=== PATIENT | female | born 1945 | race Caucasian/White ===

== ENCOUNTER 2017-05-01 16:32 | Inpatient (IN) | payer MEDICARE, OTHER ==
[~2017-05-01] VITALS: Ht 154.9 cm; Wt 52.6 kg
[2017-05-01 16:33] VITALS: BP 159/71; PULSE 109; RESP 20; TEMP 98.5; O2SAT 96
--- NOTE | 2017-05-01 18:09 | RADRPT ---
EXAM DATE/TIME: 05/01/2017 17:30 [facility] COMPARISON: No previous studies available for comparison. INDICATIONS : Short of breath. MEDICAL HISTORY : Carcinoma, gastric. SURGICAL HISTORY : Port placement. Back surgery. ENCOUNTER: Initial ACUITY: 1 day PAIN SCORE: 5/10 LOCATION: Bilateral chest FINDINGS: [id number] in good position. Posterior spinal fusion evident. Elevation of the right hemidiaphra gm. Lungs are clear. The heart and pulmonary vascularity are normal. CONCLUSION: Elevation the right hemidiaphragm otherwise negative. Ariel Rivera MD FACR on May 01, 2017 at 18:07 Board Certified Radiologist. This report was verified electronically.
--- NOTE | 2017-05-01 18:09 | RADRPT ---
EXAM DATE/TIME: 05/01/2017 17:30 [facility] COMPARISON: No previous studies available for comparison. INDICATIONS : Short of breath. MEDICAL HISTORY : Carcinoma, gastric. SURGICAL HISTORY : Port placement. Back surgery. ENCOUNTER: Initial ACUITY: 1 day PAIN SCORE: 5/10 LOCATION: Bilateral chest FINDINGS: [id number] in good position. Posterior spinal fusion evident. Elevation of the right hemidiaphra gm. Lungs are clear. The heart and pulmonary vascularity are normal. CONCLUSION: Elevation the right hemidiaphragm otherwise negative. Ariel Rivera MD FACR on May 01, 2017 at 18:07 Board Certified Radiologist. This report was verified electronically.
--- NOTE | 2017-05-01 18:09 | RADRPT ---
EXAM DATE/TIME: 05/01/2017 17:30 [facility] COMPARISON: No previous studies available for comparison. INDICATIONS : Short of breath. MEDICAL HISTORY : Carcinoma, gastric. SURGICAL HISTORY : Port placement. Back surgery. ENCOUNTER: Initial ACUITY: 1 day PAIN SCORE: 5/10 LOCATION: Bilateral chest FINDINGS: [id number] in good position. Posterior spinal fusion evident. Elevation of the right hemidiaphra gm. Lungs are clear. The heart and pulmonary vascularity are normal. CONCLUSION: Elevation the right hemidiaphragm otherwise negative. Ariel Rivera MD FACR on May 01, 2017 at 18:07 Board Certified Radiologist. This report was verified electronically.
[2017-05-01 18:16] LABS: BACTERIA, URINE OCC /hpf; BILIRUBIN, URINE NEG (NEG); BLOOD, URINE NEG (NEG); GLUCOSE,URINE NEG (NEG); KETONE, URINE NEG (NEG); NITRITE,URINE NEG (NEG); SQUAMOUS EPITHELIAL CELL URINE <1 /hpf (0-5); URINE COLOR YELLOW (YELLW/STRAW); URINE LEUKOCYTE ESTERASE NEG (NEG)
--- NOTE | 2017-05-01 18:16 | RADRPT ---
EXAM DATE/TIME: 05/01/2017 17:41 [facility] COMPARISON: No previous studies available for comparison. INDICATIONS : Abdomen pain with swelling for two days. ORAL CONTRAST: No oral contrast ingested. RADIATION DOSE: 10.76 CTDIvol (mGy) MEDICAL HISTORY : Carcinoma, gastric. Carcinoma, hepatocellular. SURGICAL HISTORY : None. ENCOUNTER: Initial ACUITY: 2 days PAIN SCALE: 4/10 LOCATION: Bilateral lower quadrant TECHNIQUE: Volumetric scanning of the abdomen and pelvis was performed. Using automated exposure control and ad justment of the mA and/or kV according to patient size, radiation dose was kept as low as reasonably achievable to obtain optimal diagnostic quality images. DICOM format image data is available electro nically for review and comparison. FINDINGS: This study is degraded by motion artifact. LOWER LUNGS: There is a small right pleural effusion. LIVER: The right lobe of the liver is enlarged and diffusely inhomogeneous with ill-defined masslike areas n oted which are poorly defined. There is streak and motion artifact limiting sensitivity. Left lobe is more normal in size demonstrates apparent mild biliary obstruction. SPLEEN: Normal size without lesion. PANCREAS: Not well visualized or evaluated. KIDNEYS: Status post apparent left nephrectomy with surgical clips and kana in this region. The right kidne y is located in the central pelvis but no focal abnormality or hydronephrosis. ADRENAL GLANDS: Not well visualized. No evidence of a focal mass. VASCULAR: There is no aortic aneurysm. BOWEL/MESENTERY: No oral contrast was given limiting the sensitivity. There is a large left lateral hernia containing multiple loops of bowel. There is mesh in place along the lateral wall of the hernia. There is a nons pecific bowel gas pattern with multiple loops of nondilated air-containing small bowel. There are mul tiple diverticuli in the colon. There is no evidence of free air. Stomach is poorly defined. ABDOMINAL WALL: Within normal limits. RETROPERITONEUM: There is no lymphadenopathy. BLADDER: No wall thickening or mass. REPRODUCTIVE: Within normal limits. INGUINAL: There is no lymphadenopathy or hernia. MUSCULOSKELETAL: There is osteopenia, degenerative change and scoliosis. Postoperative changes are noted in the lumbar spine and lower thoracic spine status post fusion. There is evidence of anasarca with increased dens ity noted in the subcutaneous fat. CONCLUSION: 1. Limited suboptimal study with no intravenous or oral contrast. There is motion and streak artifact as well. This limits the sensitivity of the exam. 2. The right lobe of liver is markedly enlarged with ill-defined masslike areas of concern for metast atic disease or tumor. 3. Large left lateral hernia containing multiple loops of bowel. There is mesh over the lateral abdo jose wall. 4. Nonspecific bowel gas pattern which could represent an ileus or gastroenteritis. Obstruction is le ss likely. 5. Status post left nephrectomy. The right kidney is located in the central pelvis. 6. Right pleural effusion. 7. Anasarca. Ganga Morejon MD on May 01, 2017 at 18:08 Board Certified Radiologist. This report was verified electronically.
[2017-05-01 18:17] LABS: ALBUMIN 1.6 GM/DL (3.4-5.0); AST (GOT) 90 U/L (15-37); BICARBONATE 26.3 MEQ/L (21.0-32.0); BLOOD UREA NITROGEN 13 MG/DL (7-18); CALCIUM 7.7 MG/DL (8.5-10.1); CHLORIDE 100 MEQ/L (98-107); CREATININE 0.42 MG/DL (0.50-1.00); GLOMERULAR FILTRATION RATE 150 ML/MIN (>89); GLUCOSE,RANDOM 105 MG/DL (74-106); SODIUM (NA) 134 MEQ/L (136-145)
[2017-05-01 18:20] LABS: ALKALINE PHOSPHATASE 295 U/L (45-117); ALT (GPT) 23 U/L (10-53); TOTAL BILIRUBIN ADULT 0.5 MG/DL (0.2-1.0); TOTAL PROTEIN 4.9 GM/DL (6.4-8.2)
[2017-05-01] MEDS ORDERED: LORA-392 PO (18:27)
[2017-05-01] MEDS ORDERED: WELLTAB39 PO (18:27)
--- NOTE | 2017-05-01 18:32 | PD ---
HPI Chief Complaint: Edema Time Seen by Provider: 16:50 Travel History International Travel<30 days: No Contact w/Intl Traveler<30days: No Traveled to known affect area: No History of Present Illness HPI This 71 year-old woman with a history of metastatic gastric carcinoma who is brought in by her [id number] for lower extremity swelling. Patient has a complicated long history and just is moving to the area from [facility]. She reportedly had a major trauma a year or 2 ago where she was bedridden. She had been refusing treatment. Up and reportedly some time in the past year or so had major back surgeries all surgery on her left leg. There are this time she's also diagnosis of metastatic gastric cancer with multiple metastases to the liver. They have records with her that shows was known at least as far back in July where the imaging describes progressive disease. Patient has a port in place but it's unclear she's ever had chemotherapy. So like she may have had 4 treatments or so. Patient was being cared for by her brother who in January. Patient is unable to give much meaningful history. They report that she's also had her left kidney removed sometime in the remote past. Imaging did have with her shows that there are right kidney had hydronephrosis from obstruction possibly related to malignancy. They were reestablishing here and have an appointment with a new doctor at [facility]. They brought her into the emergency department today because of worsening lower extremity edema over the past several days. History Past Medical History Narrative Medical History of major trauma 2 years or so ago, reportedly bedridden, spinal surgery within the past year or so, and left lower extremity surgeries in the past 6 months or so Metastatic gastric carcinoma with multiple metastasis to the liver, unclear she' s ever had treatment for this History of left nephrectomy in the remote past Social History Alcohol Use: No Tobacco Use: No Allergies-Medications (Allergen,Severity, Reaction): Coded Allergies: No Known Allergies (Unverified , 05/01/17) Reported Meds & Prescriptions Reported Meds & Active Scripts Active Reported Ativan (Lorazepam) 0.5 Mg Tab 0.5 Mg PO DAILY PRN Wellbutrin Xl 24 HR (Bupropion HCl) 300 Mg Tab 300 Mg PO DAILY Review of Systems Except as stated in HPI: all other systems reviewed are Neg Physical Exam Narrative GENERAL: Chronically ill-appearing 71 year-old woman, no acute distress. SKIN: Focused skin assessment warm/dry. HEAD: Atraumatic. Normocephalic. EYES: Pupils equal and round. No scleral icterus. No injection or drainage. ENT: No nasal bleeding or discharge. Mucous membranes pink and moist. Temporal wasting. NECK: Trachea midline. No JVD. CARDIOVASCULAR: Regular rate and rhythm. No murmur appreciated. RESPIRATORY: No accessory muscle use. Clear to auscultation. Breath sounds equal bilaterally. GASTROINTESTINAL: Abdomen soft, non-tender, nondistended. Hepatic and splenic margins not palpable. MUSCULOSKELETAL: No obvious deformities. Significant pitting dependent edema in the lower extremities and in the buttock. Also some edema in the hands. NEUROLOGICAL: Awake and alert. Confused. No obvious cranial nerve deficits. Motor grossly within normal limits. Normal speech. Data Data Last Documented VS Vital Signs Date Time Temp Pulse Resp B/P (MAP) Pulse Ox O2 Delivery O2 Flow Rate FiO2 05/01/17 16:57 93 16 96 Room Air 05/01/17 16:33 98.5 159/71 (100) Orders Orders Complete Blood Count With Diff (05/01/17 17:01) Comprehensive Metabolic Panel (05/01/17 17:01) Iv Access Insert/Monitor (05/01/17 17:01) Ct Abd/Pel W/O Iv Contrast (05/01/17 ) Chest, Single Ap (05/01/17 ) Urinalysis - C+S If Indicated (05/01/17 17:01) Cath For Specimen (05/01/17 17:17) Labs Laboratory Tests Test 05/01/17 14:50 05/01/17 17:30 05/01/17 18:20 Urine Color YELLOW Urine Turbidity CLEAR Urine pH 6.0 Urine Specific [place] 1.021 Urine Protein TRACE mg/dL Urine Glucose (UA) NEG mg/dL Urine Ketones NEG mg/dL Urine Occult Blood NEG Urine Nitrite NEG Urine Bilirubin NEG Urine Urobilinogen 4.0 MG/DL Urine Leukocyte Esterase NEG Urine RBC LESS THAN 1 /hpf Urine WBC 2 /hpf Urine Squamous Epithelial Cells <1 /hpf Urine Bacteria OCC /hpf Microscopic Urinalysis Comment CULT NOT INDICATED Blood Urea Nitrogen 13 MG/DL Creatinine 0.42 MG/DL Random Glucose 105 MG/DL Total Protein 4.9 GM/DL Albumin 1.6 GM/DL Calcium Level 7.7 MG/DL Alkaline Phosphatase 295 U/L Aspartate Amino Transf (AST/SGOT) 90 U/L Alanine Aminotransferase (ALT/SGPT) 23 U/L Total Bilirubin 0.5 MG/DL Sodium Level 134 MEQ/L Potassium Level 4.3 MEQ/L Chloride Level 100 MEQ/L Carbon Dioxide Level 26.3 MEQ/L Anion Gap 8 MEQ/L Estimat Glomerular Filtration Rate 150 ML/MIN White Blood Count 9.6 TH/MM3 Red Blood Count 4.28 MIL/MM3 Hemoglobin 11.0 GM/DL Hematocrit 34.5 % Mean Corpuscular Volume 80.5 FL Mean Corpuscular Hemoglobin 25.7 PG Mean Corpuscular Hemoglobin Concent 31.9 % Red Cell Distribution Width 19.7 % Platelet Count 330 TH/MM3 Mean Platelet Volume 7.4 FL Neutrophils (%) (Auto) 74.5 % Lymphocytes (%) (Auto) 13.5 % Monocytes (%) (Auto) 10.0 % Eosinophils (%) (Auto) 1.5 % Basophils (%) (Auto) 0.5 % Neutrophils # (Auto) 7.1 TH/MM3 Lymphocytes # (Auto) 1.3 TH/MM3 Monocytes # (Auto) 1.0 TH/MM3 Eosinophils # (Auto) 0.1 TH/MM3 Basophils # (Auto) 0.0 TH/MM3 CBC Comment DIFF FINAL Differential Comment MDM Medical Decision Making Medical Screen Exam Complete: Yes Emergency Medical Condition: Yes Interpretation(s) CT abdomen and pelvis: Limited study with streak artifact. Right lobe of the liver large ill-defined masslike area concern for metastatic disease. Large left lateral hernia containing multiple loops of bowel. Nonspecific bowel gas pattern could be ileus or enteritis. Status post left nephrectomy. Right pleural effusion. Anasarca. Chest x-ray: Elevation of the right hemidiaphragm, otherwise negative. LABS: CBC unremarkable. Mild anemia. CMP remarkable for mildly elevated alkaline phosphatase, marked hypoproteinemia UA unremarkable Differential Diagnosis Renal failure, heart failure, hypoproteinemia, DVT, other Narrative Course Medical decision making 71-year-old woman with metastatic gastric CA with anasarca. She has one kidney and previous imaging and showed that she had had hydronephrosis and obstruction. CT imaging was obtained and doesn't show any hydronephrosis, and renal functions normal. She has pretty marked hypoproteinemia. Daughter states that she eats a fair amount. Some of this could be dependent edema from the drive from [place]. The benefit from diuretic, elevation, possibly hospice. They still haven't followed up with an oncologist it's unclear what treatment options are. Disposition: 01 DISCHARGE HOME Condition: Stable Clay Huerta MD May 01, 2017 18:32
[2017-05-01 18:35] LABS: AUTOMATED NEUTROPHIL # 7.1 TH/MM3 (1.8-7.7); BASOPHIL % 0.5 % (0.0-2.0); EOSINOPHIL # 0.1 TH/MM3 (0-0.4); EOSINOPHIL % 1.5 % (0.0-4.0); HEMATOCRIT 34.5 % (35.0-46.0); LYMPH % 13.5 % (9.0-44.0); LYMPHOCYTE # 1.3 TH/MM3 (1.0-4.8); MEAN CELL VOLUME 80.5 FL (80.0-100.0); MEAN CORPUSCULAR HEMOGLOBIN 25.7 PG (27.0-34.0); MEAN CORPUSCULAR HGB CONC 31.9 % (32.0-36.0); MEAN PLATELET VOLUME 7.4 FL (7.0-11.0); NEUT % 74.5 % (16.0-70.0); PLATELET COUNT 330 TH/MM3 (150-450); RED BLOOD COUNT 4.28 MIL/MM3 (4.00-5.30); RED CELL DISTRIBUTION WIDTH 19.7 % (11.6-17.2); WHITE BLOOD COUNT 9.6 TH/MM3 (4.0-11.0)
[2017-05-01] MEDS ORDERED: FUROSEMIDE 40 MG/4 ML VIAL IV PUSH ONE (19:15)
[2017-05-01 23:00] VITALS: PULSE 88
[2017-05-01 23:05] VITALS: BP 161/75; PULSE 68; TEMP 98.8; O2SAT 99
--- NOTE | 2017-05-01 23:25 | HHI.HP ---
[facility] No Primary Care Physician Admission Diagnosis metastic gastric CA w/ anasarca;possible ileus Diagnoses: Travel History International Travel<30 Days: No Contact w/Intl Traveler <30 Da: No Traveled to Known Affected Are: No History of Present Illness 71-year-old female with known metastatic gastric carcinoma was brought in to the emergency department for a 2 day history of lower extremity swelling. The patient has a long, complicated history and has just relocated from [place] where she was living with her brother who recently passed. Her [id number] is her healthcare surrogate and was not available during our interview. Per the patient, she does not have any illnesses or medical history. The patient is not aware that she has gastric carcinoma. According to the ED notes, the patient has been refusing treatment. She does have a port although it is unclear if she has ever had any chemotherapy. Per the patient she had chemotherapy "a long time ago," she cannot remember when. Patient reports that she had a left-sided nephrectomy although also does not remember when. CT of the abdomen and pelvis done in the emergency department today showed metastatic disease in the liver, anasarca, right pleural effusion possible ileus versus gastroenteritis. The patient denies any nausea/vomiting. Reports that she was previously hungry however recently ate and feels well now. Patient was admitted for anasarca and hospice consult. Her healthcare surrogate who is her [id number] will be in in the morning. Review of Systems Denies fever or chills Denies blurry vision, otorrhea, rhinorrhea Denies sore throat and cough No chest pain, palpitations, shortness of breath No abdominal pain Denies constipation/diarrhea/nausea/vomiting Denies muscle pain/weakness No rashes Past Family Social History Past Medical History None per the patient Per records review, metastatic gastric carcinoma Past Surgical History Back surgery 2 Bilateral knee surgeries Reported Medications Reported Meds & Active Scripts Active Reported Ativan (Lorazepam) 0.5 Mg Tab 0.5 Mg PO DAILY PRN Wellbutrin Xl 24 HR (Bupropion HCl) 300 Mg Tab 300 Mg PO DAILY Allergies: Coded Allergies: No Known Allergies (Unverified , 05/01/17) Family History Brother who recently of complications from COPD. Social History Denies tobacco, alcohol and illicit drugs Physical Exam Vital Signs Vital Signs Date Time Temp Pulse Resp B/P (MAP) Pulse Ox O2 Delivery O2 Flow Rate FiO2 05/01/17 23:05 98.8 68 161/75 (103) 99 05/01/17 16:57 93 16 96 Room Air 05/01/17 16:33 98.5 109 20 159/71 (100) 96 Room Air Physical Exam GENERAL: Cachectic female lying in bed SKIN: No rashes, ecchymoses or lesions. Cool and dry. HEAD: Atraumatic. Normocephalic. No temporal or scalp tenderness. EYES: Pupils equal round and reactive. Extraocular motions intact. No scleral icterus. No injection or drainage. ENT: Nose without bleeding, purulent drainage or septal hematoma. Throat without erythema, tonsillar hypertrophy or exudate. Uvula midline. Airway patent. NECK: Trachea midline. No JVD or lymphadenopathy. Supple, nontender, no meningeal signs. CARDIOVASCULAR: Regular rate and rhythm without murmurs, gallops, or rubs. RESPIRATORY: Clear to auscultation. Breath sounds equal bilaterally. No wheezes , rales, or rhonchi. GASTROINTESTINAL: Abdomen soft, non-tender. Anasarca present MUSCULOSKELETAL: Bilateral lower extremity edema, 2+ to the mid thigh. No calf tenderness. Negative Homans sign bilaterally. NEUROLOGICAL: Awake and alert. Cranial nerves II through XII intact. Motor and sensory grossly within normal limits. Laboratory Laboratory Tests Test 05/01/17 14:50 05/01/17 17:30 05/01/17 18:20 Urine Color YELLOW Urine Turbidity CLEAR Urine pH 6.0 Urine Specific [place] 1.021 Urine Protein TRACE Urine Glucose (UA) NEG Urine Ketones NEG Urine Occult Blood NEG Urine Nitrite NEG Urine Bilirubin NEG Urine Urobilinogen 4.0 Urine Leukocyte Esterase NEG Urine RBC LESS THAN 1 Urine WBC 2 Urine Squamous Epithelial Cells <1 Urine Bacteria OCC Microscopic Urinalysis Comment CULT NOT INDICATED Blood Urea Nitrogen 13 Creatinine 0.42 Random Glucose 105 Total Protein 4.9 Albumin 1.6 Calcium Level 7.7 Alkaline Phosphatase 295 Aspartate Amino Transf (AST/SGOT) 90 Alanine Aminotransferase (ALT/SGPT) 23 Total Bilirubin 0.5 Sodium Level 134 Potassium Level 4.3 Chloride Level 100 Carbon Dioxide Level 26.3 Anion Gap 8 Estimat Glomerular Filtration Rate 150 White Blood Count 9.6 Red Blood Count 4.28 Hemoglobin 11.0 Hematocrit 34.5 Mean Corpuscular Volume 80.5 Mean Corpuscular Hemoglobin 25.7 Mean Corpuscular Hemoglobin Concent 31.9 Red Cell Distribution Width 19.7 Platelet Count 330 Mean Platelet Volume 7.4 Neutrophils (%) (Auto) 74.5 Lymphocytes (%) (Auto) 13.5 Monocytes (%) (Auto) 10.0 Eosinophils (%) (Auto) 1.5 Basophils (%) (Auto) 0.5 Neutrophils # (Auto) 7.1 Lymphocytes # (Auto) 1.3 Monocytes # (Auto) 1.0 Eosinophils # (Auto) 0.1 Basophils # (Auto) 0.0 CBC Comment DIFF FINAL Differential Comment Result Diagram: 05/01/17 1820 05/01/17 1730 Caprini VTE Risk Assessment Caprini VTE Risk Assessment: Mod/High Risk (score >= 2) Caprini Risk Assessment Model Point Value = 1 Point Value = 2 Point Value = 3 Point Value = 5 Age 41-60 Minor surgery BMI > 25 kg/m2 Swollen legs Varicose veins or History of unexplained or recurrent spontaneous Oral contraceptives or hormone replacement Sepsis (< 1 month) Serious lung disease, including pneumonia (< 1 month) Abnormal pulmonary function Acute myocardial infarction Congestive heart failure (< 1 month) History of inflammatory bowel disease Medical patient at bed rest Age 61-74 Arthroscopic surgery Major open surgery (> 45 min) Laparoscopic surgery (> 45 min) Malignancy Confined to bed (> 72 hours) Immobilizing plaster cast Central venous access Age >= 75 History of VTE Family history of VTE Factor V Leiden Prothrombin [id number] Lupus anticoagulant Anticardiolipin antibodies Elevated serum homocysteine Heparin-induced thrombocytopenia Other congenital or acquired thrombophilia Stroke (< 1 month) Elective arthroplasty Hip, pelvis, or leg fracture Acute spinal cord injury (< 1 month) Prophylaxis Regimen Total Risk Factor Score Risk Level Prophylaxis Regimen 0-1 Low Early ambulation 2 Moderate Order ONE of the following: *Sequential Compression Device (SCD) *Heparin 5000 units SQ BID 3-4 Higher Order ONE of the following medications: *Heparin 5000 units SQ TID *Enoxaparin/Lovenox 40 mg SQ daily (WT < 150 kg, CrCl > 30 mL/min) *Enoxaparin/Lovenox 30 mg SQ daily (WT < 150 kg, CrCl > 10-29 mL/min) *Enoxaparin/Lovenox 30 mg SQ BID (WT < 150 kg, CrCl > 30 mL/min) AND/OR *Sequential Compression Device (SCD) 5 or more Highest Order ONE of the following medications: *Heparin 5000 units SQ TID (Preferred with Epidurals) *Enoxaparin/Lovenox 40 mg SQ daily (WT < 150 kg, CrCl > 30 mL/min) *Enoxaparin/Lovenox 30 mg SQ daily (WT < 150 kg, CrCl > 10-29 mL/min) *Enoxaparin/Lovenox 30 mg SQ BID (WT < 150 kg, CrCl > 30 mL/min) AND *Sequential Compression Device (SCD) Assessment and Plan Assessment and Plan 71-year-old female with metastatic gastric carcinoma and a 2 day history of anasarca admitted for hospice consultation 1. Metastatic gastric carcinoma Patient with no knowledge of this disease Per ED notes, health care surrogate who is her [id number] is aware Apparently the patient and her family do not wish to have aggressive treatment at this time Hospice consult placed 2. Anasarca and severe bilateral lower extremity edema Lasix 40 mg IV twice a day 3. Depression/anxiety Home medications include Wellbutrin and Ativan Continue home medications FEN Regular diet Electrolytes: Monitor and replete when necessary Anticoagulation with Lovenox Cornelia Jauregui MD May 01, 2017 23:25
[2017-05-01] MEDS ORDERED: SODIUM CHLORIDE 0.9% FLUSH 10 ML FLUSH IV FLUSH PRN (23:30)
[2017-05-01] MEDS ORDERED: BISACODYL 10 MG SUPP RECTAL PRN (23:30)
[2017-05-01] MEDS ORDERED: MAGNESIUM HYDROXIDE SUSP 30 ML CUP PO PRN (23:30)
[2017-05-01] MEDS ORDERED: LACTULOSE SYRUP 20 GM/30 ML CUP PO PRN (23:30)
[2017-05-01] MEDS ORDERED: NALOXONE HCL 0.4 MG/ML AMP IV PUSH PRN (23:30)
[2017-05-01] MEDS ORDERED: ONDANSETRON HCL 4 MG/2 ML VIAL IVP PRN (23:30)
[2017-05-01] MEDS ORDERED: SENNOSIDES 8.6 MG TAB PO PRN (23:30)
[2017-05-02] VITALS (22 sets, daily range): BP systolic 135–155; BP diastolic 66–90; PULSE 80–120; RESP 16–20; TEMP 97.2–98.2; O2SAT 95–97
[2017-05-02] MEDS ORDERED: diphenhydrAMINE HCL 25 MG CAP PO ONE (02:15)
[2017-05-02] MEDS: ENOXAPARIN SODIUM 40 MG/0.4 ML SYRINGE SQ SCH (05:26)
[2017-05-02 06:24] LABS: BICARBONATE 30.6 MEQ/L (21.0-32.0); CALCIUM 7.8 MG/DL (8.5-10.1); CREATININE 0.5 MG/DL (0.50-1.00)
[2017-05-02] MEDS: ACETAMINOPHEN 325 MG TAB PO PRN ×2 (08:41→21:23)
[2017-05-02] MEDS: SODIUM CHLORIDE 0.9% FLUSH 10 ML FLUSH IV FLUSH SCH ×2 (08:43→21:00)
[2017-05-02] MEDS: DOCUSATE SODIUM 50 MG/SENNA 8.6 MG TAB PO SCH ×2 (08:43→21:00)
[2017-05-02] MEDS: buPROPion HCL 150 MG SUSTAINED RELEASE TAB PO SCH (08:43)
[2017-05-02] MEDS ORDERED: FUROSEMIDE 40 MG/4 ML VIAL IV PUSH SCH (09:00)
--- NOTE | 2017-05-02 09:17 | HHI.PR ---
Subjective Remarks This is a pleasant Female with known metastatic gastric carcinoma who came to ER with 2 day history of Lower extremity edema Her labolvcs-yh-jwu is her healthcare surrogate, The patient is not aware that she has gastric carcinoma, the patient has been refusing treatment. She does have a port although it is unclear if she has ever had any chemotherapy. Per the patient she had chemotherapy "a long time ago," she cannot remember when. Patient reports that she had a left-sided nephrectomy although also does not remember when. CT of the abdomen and pelvis done in the emergency department today showed metastatic disease in the liver, anasarca, right pleural effusion possible ileus versus gastroenteritis. The patient denies any nausea/vomiting. Reports that she was previously hungry however recently ate and feels well now. Patient was admitted for anasarca and hospice consult. the Hospice Consult was asked since yesterday by Doctor Deanna Emergency medicine specialist, was discussed in the room with her Son in law Mr. Arcos and with his , they are waiting for Hospice Nurse who was consulted to see the patient and discuss her management at this time stable in her bedroom awaiting final recommendations. Objective Vital Signs Date Time Temp Pulse Resp B/P (MAP) Pulse Ox O2 Delivery O2 Flow Rate FiO2 05/02/17 04:41 84 05/02/17 04:29 97.8 89 146/82 (103) 95 05/02/17 03:00 87 05/02/17 02:00 94 05/02/17 01:00 92 05/02/17 00:47 97.9 109 147/81 (103) 96 05/02/17 00:00 84 05/01/17 23:05 98.8 68 161/75 (103) 99 05/01/17 23:00 88 05/01/17 16:57 93 16 96 Room Air 05/01/17 16:33 98.5 109 20 159/71 (100) 96 Room Air I/O 05/01/17 05/01/17 05/01/17 05/02/17 05/02/17 05/02/17 07:00 15:00 23:00 07:00 15:00 23:00 Intake Total 240 ml 240 ml Output Total 400 ml Balance 240 ml -160 ml Intake Oral 240 ml 240 ml Output Urine Total 400 ml # Voids 2 # Bowel Movements 2 Result Diagram: 05/01/17 1820 05/02/17 0547 Imaging No new Imaging studies. Procedures None Other Results Laboratory Tests Test 05/01/17 14:50 05/01/17 17:30 05/01/17 18:20 05/02/17 05:47 Urine Color YELLOW Urine Turbidity CLEAR Urine pH 6.0 Urine Specific [place] 1.021 Urine Protein TRACE mg/dL Urine Glucose (UA) NEG mg/dL Urine Ketones NEG mg/dL Urine Occult Blood NEG Urine Nitrite NEG Urine Bilirubin NEG Urine Urobilinogen 4.0 MG/DL Urine Leukocyte Esterase NEG Urine RBC LESS THAN 1 /hpf Urine WBC 2 /hpf Urine Squamous Epithelial Cells <1 /hpf Urine Bacteria OCC /hpf Microscopic Urinalysis Comment CULT NOT INDICATED Blood Urea Nitrogen 13 MG/DL 13 MG/DL Creatinine 0.42 MG/DL 0.50 MG/DL Random Glucose 105 MG/DL 81 MG/DL Total Protein 4.9 GM/DL Albumin 1.6 GM/DL Calcium Level 7.7 MG/DL 7.8 MG/DL Alkaline Phosphatase 295 U/L Aspartate Amino Transf (AST/SGOT) 90 U/L Alanine Aminotransferase (ALT/SGPT) 23 U/L Total Bilirubin 0.5 MG/DL Sodium Level 134 MEQ/L 135 MEQ/L Potassium Level 4.3 MEQ/L 4.0 MEQ/L Chloride Level 100 MEQ/L 98 MEQ/L Carbon Dioxide Level 26.3 MEQ/L 30.6 MEQ/L White Blood Count 9.6 TH/MM3 Red Blood Count 4.28 MIL/MM3 Hemoglobin 11.0 GM/DL Hematocrit 34.5 % Mean Corpuscular Volume 80.5 FL Mean Corpuscular Hemoglobin 25.7 PG Mean Corpuscular Hemoglobin Concent 31.9 % Red Cell Distribution Width 19.7 % Platelet Count 330 TH/MM3 Mean Platelet Volume 7.4 FL Neutrophils (%) (Auto) 74.5 % Lymphocytes (%) (Auto) 13.5 % Monocytes (%) (Auto) 10.0 % Eosinophils (%) (Auto) 1.5 % Basophils (%) (Auto) 0.5 % Neutrophils # (Auto) 7.1 TH/MM3 Lymphocytes # (Auto) 1.3 TH/MM3 Monocytes # (Auto) 1.0 TH/MM3 Eosinophils # (Auto) 0.1 TH/MM3 Basophils # (Auto) 0.0 TH/MM3 CBC Comment DIFF FINAL Differential Comment Anion Gap 6 MEQ/L Estimat Glomerular Filtration Rate 122 ML/MIN Objective Remarks GENERAL: No acute distress. SKIN: No rashes, ecchymoses or lesions. Cool and dry. HEAD: Atraumatic. Normocephalic. No temporal or scalp tenderness. EYES: Pupils equal round and reactive. Extraocular motions intact. No scleral icterus. No injection or drainage. ENT: Nose without bleeding, purulent drainage or septal hematoma. Throat without erythema, tonsillar hypertrophy or exudate. Uvula midline. Airway patent. NECK: Trachea midline. No JVD or lymphadenopathy. Supple, nontender, no meningeal signs. CARDIOVASCULAR: Regular rate and rhythm without murmurs, gallops, or rubs. RESPIRATORY: Clear to auscultation. Breath sounds equal bilaterally. No wheezes , rales, or rhonchi. GASTROINTESTINAL: Abdomen soft, non-tender. Anasarca present MUSCULOSKELETAL: Bilateral lower extremity edema, 2+ to the mid thigh. No calf tenderness. Negative Homans sign bilaterally. NEUROLOGICAL: Awake and alert. Cranial nerves II through XII intact. Motor and sensory grossly within normal limits. Medications and IVs Current Medications Medications (Trade) Dose Ordered Sig/Gamaliel Route Start Time Stop Time Status Last Admin (Wellbutrin Sr) 300 mg DAILY PO 05/02/17 09:00 05/02/17 08:43 (Pneumovax-23 Inj) 25 mcg ONCE ONCE IM 05/02/17 10:00 05/02/17 10:01 (Flu (Quadrivalent) Vaccine Inj) 0.5 ml ONCE ONCE IM 05/02/17 10:00 05/02/17 10:01 (NS Flush) 2 ml UNSCH PRN IV FLUSH 05/01/17 23:30 (NS Flush) 2 ml BID IV FLUSH 05/02/17 09:00 05/02/17 08:43 (Tylenol) 650 mg Q4H PRN PO 05/01/17 23:30 05/02/17 08:41 (Zofran Inj) 4 mg Q6H PRN IVP 05/01/17 23:30 (Lovenox Inj) 40 mg Q24H SQ 05/01/17 06:00 05/02/17 05:26 (Narcan Inj) 0.4 mg UNSCH PRN IV PUSH 05/01/17 23:30 (Ainsley-Colace) 1 tab BID PO 05/02/17 09:00 05/02/17 08:43 (Milk Of Magnesia Liq) 30 ml Q12H PRN PO 05/01/17 23:30 (Senokot) 17.2 mg Q12H PRN PO 05/01/17 23:30 (Dulcolax Supp) 10 mg DAILY PRN RECTAL 05/01/17 23:30 (Lactulose Liq) 30 ml DAILY PRN PO 05/01/17 23:30 (Lasix Inj) 40 mg BID@,18 IV PUSH 05/02/17 09:00 05/02/17 08:42 A/P Assessment and Plan 71-year-old female with metastatic gastric carcinoma and a 2 day history of anasarca admitted for hospice consultation 1. Metastatic gastric carcinoma Patient with no knowledge of this disease No further management possible recommended by her Primary emergency room specialist in [place] will go to Hospice. 2. Anasarca and severe bilateral lower extremity edema Lasix decreased to 40 mg bid by mouth. 3. Depression/anxiety Home medications include Wellbutrin and Ativan Continue home medications FEN Regular diet Electrolytes: Monitor and replete when necessary Anticoagulation with Lovenox discussed in the room with nurse Miss Bejarano with Patient and her Son in law and daughter awaiting for Hospice Consult to transfer to home with Hospice. Discharge Planning Awaiting Hospice consult for discharge. Lai Oropeza MD May 02, 2017 09:17
[2017-05-02] MEDS ORDERED: INFLUENZA VIRUS VACCINE (QUADRIVALENT) 0.5 ML SYR IM ONE (10:00)
[2017-05-02] MEDS ORDERED: PNEUMOCOCCAL POLYVALENT INJ 25 MCG/0.5 ML SYR IM ONE (10:00)
[2017-05-02] MEDS: FUROSEMIDE 40 MG TAB PO SCH (18:50)
[2017-05-03 00:37] VITALS: BP 139/84; PULSE 100; TEMP 97.4; O2SAT 96
[2017-05-03 03:00] VITALS: PULSE 95
[2017-05-03 04:48] VITALS: BP 142/80; PULSE 85; TEMP 97.6; O2SAT 96
[2017-05-03] MEDS: ENOXAPARIN SODIUM 40 MG/0.4 ML SYRINGE SQ SCH (05:20)
[2017-05-03 08:34] VITALS: BP 163/98; PULSE 96; RESP 18; O2SAT 99
--- NOTE | 2017-05-03 09:28 | HHI.PR ---
Subjective Remarks This is a pleasant Female with known metastatic gastric carcinoma who came to ER with 2 day history of Lower extremity edema Her xtotlmmb-is-sbj is her healthcare surrogate, The patient is not aware that she has gastric carcinoma, the patient has been refusing treatment. She does have a port although it is unclear if she has ever had any chemotherapy. Per the patient she had chemotherapy "a long time ago," she cannot remember when. Patient reports that she had a left-sided nephrectomy although also does not remember when. CT of the abdomen and pelvis done in the emergency department today showed metastatic disease in the liver, anasarca, right pleural effusion possible ileus versus gastroenteritis. The patient denies any nausea/vomiting. Reports that she was previously hungry however recently ate and feels well now. Patient was admitted for anasarca and hospice consult. the Hospice Consult was asked since yesterday by Doctor Deanna Emergency medicine specialist, was discussed in the room with her Son in law Mr. Arcos and with his , they are waiting for Hospice Nurse who was consulted to see the patient and discuss her management at this time stable in her bedroom awaiting final recommendations. 05/03: Seen in her bedroom discussed with nurse and with patient and relatives, she is going at this time to Home with Hospice. No nausea, vomit or diarrhea. Objective Vital Signs Date Time Temp Pulse Resp B/P (MAP) Pulse Ox O2 Delivery O2 Flow Rate FiO2 05/03/17 08:34 96 18 163/98 (119) 99 05/03/17 04:48 97.6 85 142/80 (100) 96 05/03/17 03:00 95 05/03/17 00:37 97.4 100 139/84 (102) 96 05/02/17 23:00 95 05/02/17 19:00 97.8 92 138/90 (106) 96 05/02/17 19:00 91 05/02/17 15:05 97.2 88 16 147/83 (104) 97 05/02/17 15:05 81 05/02/17 14:07 86 05/02/17 13:00 80 05/02/17 12:00 86 05/02/17 11:35 97.5 88 16 135/82 (99) 96 05/02/17 11:00 89 05/02/17 10:00 88 I/O 05/02/17 05/02/17 05/02/17 05/03/17 05/03/17 05/03/17 07:00 15:00 23:00 07:00 15:00 23:00 Intake Total 240 ml 480 ml 480 ml Output Total 400 ml 800 ml Balance -160 ml 480 ml -320 ml Intake Oral 240 ml 480 ml 480 ml Output Urine Total 400 ml 800 ml # Voids 2 5 # Bowel Movements 2 1 2 Result Diagram: 05/01/17 1820 05/02/17 0547 Imaging Last Impressions Chest X-Ray 05/01/17 0000 Signed Impressions: Service Date/Time: Monday, May 01, 2017 17:30 - CONCLUSION: Elevation the right hemidiaphragm otherwise negative. Ariel Rivera MD FACR Abdomen/Pelvis CT 05/01/17 0000 Signed Impressions: Service Date/Time: Monday, May 01, 2017 17:41 - CONCLUSION: 1. Limited suboptimal study with no intravenous or oral contrast. There is motion and streak artifact as well. This limits the sensitivity of the exam. 2. The right lobe of liver is markedly enlarged with ill-defined masslike areas of concern for metastatic disease or tumor. 3. Large left lateral hernia containing multiple loops of bowel. There is mesh over the lateral abdominal wall. 4. Nonspecific bowel gas pattern which could represent an ileus or gastroenteritis. Obstruction is less likely. 5. Status post left nephrectomy. The right kidney is located in the central pelvis. 6. Right pleural effusion. 7. Anasarca. Ganga Morejon MD Procedures None Other Results Laboratory Tests Test 05/01/17 14:50 05/01/17 17:30 05/01/17 18:20 05/02/17 05:47 Urine Color YELLOW Urine Turbidity CLEAR Urine pH 6.0 Urine Specific [place] 1.021 Urine Protein TRACE mg/dL Urine Glucose (UA) NEG mg/dL Urine Ketones NEG mg/dL Urine Occult Blood NEG Urine Nitrite NEG Urine Bilirubin NEG Urine Urobilinogen 4.0 MG/DL Urine Leukocyte Esterase NEG Urine RBC LESS THAN 1 /hpf Urine WBC 2 /hpf Urine Squamous Epithelial Cells <1 /hpf Urine Bacteria OCC /hpf Microscopic Urinalysis Comment CULT NOT INDICATED Blood Urea Nitrogen 13 MG/DL 13 MG/DL Creatinine 0.42 MG/DL 0.50 MG/DL Random Glucose 105 MG/DL 81 MG/DL Total Protein 4.9 GM/DL Albumin 1.6 GM/DL Calcium Level 7.7 MG/DL 7.8 MG/DL Alkaline Phosphatase 295 U/L Aspartate Amino Transf (AST/SGOT) 90 U/L Alanine Aminotransferase (ALT/SGPT) 23 U/L Total Bilirubin 0.5 MG/DL Sodium Level 134 MEQ/L 135 MEQ/L Potassium Level 4.3 MEQ/L 4.0 MEQ/L Chloride Level 100 MEQ/L 98 MEQ/L Carbon Dioxide Level 26.3 MEQ/L 30.6 MEQ/L White Blood Count 9.6 TH/MM3 Red Blood Count 4.28 MIL/MM3 Hemoglobin 11.0 GM/DL Hematocrit 34.5 % Mean Corpuscular Volume 80.5 FL Mean Corpuscular Hemoglobin 25.7 PG Mean Corpuscular Hemoglobin Concent 31.9 % Red Cell Distribution Width 19.7 % Platelet Count 330 TH/MM3 Mean Platelet Volume 7.4 FL Neutrophils (%) (Auto) 74.5 % Lymphocytes (%) (Auto) 13.5 % Monocytes (%) (Auto) 10.0 % Eosinophils (%) (Auto) 1.5 % Basophils (%) (Auto) 0.5 % Neutrophils # (Auto) 7.1 TH/MM3 Lymphocytes # (Auto) 1.3 TH/MM3 Monocytes # (Auto) 1.0 TH/MM3 Eosinophils # (Auto) 0.1 TH/MM3 Basophils # (Auto) 0.0 TH/MM3 CBC Comment DIFF FINAL Differential Comment Anion Gap 6 MEQ/L Estimat Glomerular Filtration Rate 122 ML/MIN Objective Remarks GENERAL: No acute distress. SKIN: No rashes, ecchymoses or lesions. Cool and dry. HEAD: Atraumatic. Normocephalic. No temporal or scalp tenderness. EYES: Pupils equal round and reactive. Extraocular motions intact. No scleral icterus. No injection or drainage. ENT: Nose without bleeding, purulent drainage or septal hematoma. Throat without erythema, tonsillar hypertrophy or exudate. Uvula midline. Airway patent. NECK: Trachea midline. No JVD or lymphadenopathy. Supple, nontender, no meningeal signs. CARDIOVASCULAR: Regular rate and rhythm without murmurs, gallops, or rubs. RESPIRATORY: Clear to auscultation. Breath sounds equal bilaterally. No wheezes , rales, or rhonchi. GASTROINTESTINAL: Abdomen soft, non-tender. Anasarca present MUSCULOSKELETAL: Bilateral lower extremity edema, 2+ to the mid thigh. No calf tenderness. Negative Homans sign bilaterally. NEUROLOGICAL: Awake and alert. Cranial nerves II through XII intact. Motor and sensory grossly within normal limits. Medications and IVs Current Medications Medications (Trade) Dose Ordered Sig/Gamaliel Route Start Time Stop Time Status Last Admin (Wellbutrin Sr) 300 mg DAILY PO 05/02/17 09:00 05/02/17 08:43 (NS Flush) 2 ml UNSCH PRN IV FLUSH 05/01/17 23:30 (NS Flush) 2 ml BID IV FLUSH 05/02/17 09:00 05/02/17 21:00 (Tylenol) 650 mg Q4H PRN PO 05/01/17 23:30 05/02/17 21:23 (Zofran Inj) 4 mg Q6H PRN IVP 05/01/17 23:30 (Lovenox Inj) 40 mg Q24H SQ 05/01/17 06:00 05/03/17 05:20 (Narcan Inj) 0.4 mg UNSCH PRN IV PUSH 05/01/17 23:30 (Ainsley-Colace) 1 tab BID PO 05/02/17 09:00 05/02/17 08:43 (Milk Of Magnesia Liq) 30 ml Q12H PRN PO 05/01/17 23:30 (Senokot) 17.2 mg Q12H PRN PO 05/01/17 23:30 (Dulcolax Supp) 10 mg DAILY PRN RECTAL 05/01/17 23:30 (Lactulose Liq) 30 ml DAILY PRN PO 05/01/17 23:30 (Lasix) 40 mg BID@,18 PO 05/02/17 18:00 05/02/17 18:50 A/P Assessment and Plan 71-year-old female with metastatic gastric carcinoma and a 2 day history of anasarca admitted for hospice consultation 1. Metastatic gastric carcinoma Patient with no knowledge of this disease No further management possible recommended by her Primary academic guidance specialist in [place] will go to Hospice. 2. Anasarca and severe bilateral lower extremity edema, Improving fast recommended no salty foods. Lasix decreased to 40 mg daily by mouth. 3. Depression/anxiety Home medications include Wellbutrin and Ativan Continue home medications 4. Hypertension added Amlodipine low dose. Anticoagulation with Lovenox discussed in the room with nurse Miss Bejarano with Patient and her Son in law and daughter. Discharge Planning Home with Hospice. Lai Oropeza MD May 03, 2017 09:28
[2017-05-03] MEDS: buPROPion HCL 150 MG SUSTAINED RELEASE TAB PO SCH ×2 (10:13→11:30)
[2017-05-03] MEDS: FUROSEMIDE 40 MG TAB PO SCH (10:14)
[2017-05-03] MEDS: DOCUSATE SODIUM 50 MG/SENNA 8.6 MG TAB PO SCH (10:14)
[2017-05-03] MEDS ORDERED: AMLO2.5T PO (12:26)
[2017-05-03] MEDS ORDERED: FURO40TA PO (12:26)
--- NOTE | 2017-05-03 12:29 | HHI.DS ---
Discharge Summary Admission Date May 03, 2017 at 09:21 Discharge Date: May 03, 2017 Admitting Diagnosis metastic gastric CA w/ anasarca;possible ileus (1) Metastasis from gastric cancer ICD Code: C79.9 - Secondary malignant neoplasm of unspecified site; C16.9 - Malignant neoplasm of stomach, unspecified Diagnosis: Principal Procedures none Brief History - From Admission 71-year-old female with known metastatic gastric carcinoma was brought in to the emergency department for a 2 day history of lower extremity swelling. The patient has a long, complicated history and has just relocated from [place] where she was living with her brother who recently passed. Her kxvyrsob-ut-yeb is her healthcare surrogate and was not available during our interview. Per the patient, she does not have any illnesses or medical history. The patient is not aware that she has gastric carcinoma. According to the ED notes, the patient has been refusing treatment. She does have a port although it is unclear if she has ever had any chemotherapy. Per the patient she had chemotherapy "a long time ago," she cannot remember when. Patient reports that she had a left-sided nephrectomy although also does not remember when. CT of the abdomen and pelvis done in the emergency department today showed metastatic disease in the liver, anasarca, right pleural effusion possible ileus versus gastroenteritis. The patient denies any nausea/vomiting. Reports that she was previously hungry however recently ate and feels well now. Patient was admitted for anasarca and hospice consult. Her healthcare surrogate who is her lfcpxmju-bh-bqy will be in in the morning. CBC/BMP: 05/01/17 1820 05/02/17 0547 Significant Findings Laboratory Tests Test 05/01/17 14:50 05/01/17 17:30 05/01/17 18:20 05/02/17 05:47 Urine Urobilinogen 4.0 MG/DL (LESS THAN Urine Bacteria OCC /hpf (NONE) Creatinine 0.42 MG/DL (0.50-1.00) Total Protein 4.9 GM/DL (6.4-8.2) Albumin 1.6 GM/DL (3.4-5.0) Calcium Level 7.7 MG/DL (8.5-10.1) 7.8 MG/DL (8.5-10.1) Alkaline Phosphatase 295 U/L (45-117) Aspartate Amino Transf (AST/SGOT) 90 U/L (15-37) Sodium Level 134 MEQ/L (136-145) 135 MEQ/L (136-145) Hemoglobin 11.0 GM/DL (11.6-15.3) Hematocrit 34.5 % (35.0-46.0) Mean Corpuscular Hemoglobin 25.7 PG (27.0-34.0) Mean Corpuscular Hemoglobin Concent 31.9 % (32.0-36.0) Red Cell Distribution Width 19.7 % (11.6-17.2) Neutrophils (%) (Auto) 74.5 % (16.0-70.0) Monocytes (%) (Auto) 10.0 % (0.0-8.0) Monocytes # (Auto) 1.0 TH/MM3 (0-0.9) Imaging Last Impressions Chest X-Ray 05/01/17 0000 Signed Impressions: Service Date/Time: Monday, May 01, 2017 17:30 - CONCLUSION: Elevation the right hemidiaphragm otherwise negative. Ariel Rivera MD FACR Abdomen/Pelvis CT 05/01/17 0000 Signed Impressions: Service Date/Time: Monday, May 01, 2017 17:41 - CONCLUSION: 1. Limited suboptimal study with no intravenous or oral contrast. There is motion and streak artifact as well. This limits the sensitivity of the exam. 2. The right lobe of liver is markedly enlarged with ill-defined masslike areas of concern for metastatic disease or tumor. 3. Large left lateral hernia containing multiple loops of bowel. There is mesh over the lateral abdominal wall. 4. Nonspecific bowel gas pattern which could represent an ileus or gastroenteritis. Obstruction is less likely. 5. Status post left nephrectomy. The right kidney is located in the central pelvis. 6. Right pleural effusion. 7. Anasarca. Ganga Morejon MD PE at Discharge GENERAL: No acute distress. SKIN: No rashes, ecchymoses or lesions. Cool and dry. HEAD: Atraumatic. Normocephalic. No temporal or scalp tenderness. EYES: Pupils equal round and reactive. Extraocular motions intact. No scleral icterus. No injection or drainage. ENT: Nose without bleeding, purulent drainage or septal hematoma. Throat without erythema, tonsillar hypertrophy or exudate. Uvula midline. Airway patent. NECK: Trachea midline. No JVD or lymphadenopathy. Supple, nontender, no meningeal signs. CARDIOVASCULAR: Regular rate and rhythm without murmurs, gallops, or rubs. RESPIRATORY: Clear to auscultation. Breath sounds equal bilaterally. No wheezes , rales, or rhonchi. GASTROINTESTINAL: Abdomen soft, non-tender. Anasarca present MUSCULOSKELETAL: Bilateral lower extremity edema, 2+ to the mid thigh. No calf tenderness. Negative Homans sign bilaterally. NEUROLOGICAL: Awake and alert. Cranial nerves II through XII intact. Motor and sensory grossly within normal limits. Hospital Course This is a pleasant Female with known metastatic gastric carcinoma who came to ER with 2 day history of Lower extremity edema Her dgztgkvk-ky-ben is her healthcare surrogate, The patient is not aware that she has gastric carcinoma, the patient has been refusing treatment. She does have a port although it is unclear if she has ever had any chemotherapy. Per the patient she had chemotherapy "a long time ago," she cannot remember when. Patient reports that she had a left-sided nephrectomy although also does not remember when. CT of the abdomen and pelvis done in the emergency department today showed metastatic disease in the liver, anasarca, right pleural effusion possible ileus versus gastroenteritis. The patient denies any nausea/vomiting. Reports that she was previously hungry however recently ate and feels well now. Patient was admitted for anasarca and hospice consult. the Hospice Consult was asked since yesterday by Doctor Huerta Emergency medicine specialist, was discussed in the room with her Son in law Mr. Arcos and with his , they are waiting for Hospice Nurse who was consulted to see the patient and discuss her management at this time stable in her bedroom awaiting final recommendations. 05/03: Seen in her bedroom discussed with nurse and with patient and relatives, she is going at this time to Home with Hospice. No nausea, vomit or diarrhea. Assessment and Plan 71-year-old female with metastatic gastric carcinoma and a 2 day history of anasarca admitted for hospice consultation 1. Metastatic gastric carcinoma Patient with no knowledge of this disease No further management possible recommended by her Primary retirement specialist in [place] will go to Hospice. 2. Anasarca and severe bilateral lower extremity edema, Improving fast recommended no salty foods. Lasix decreased to 40 mg daily by mouth. 3. Depression/anxiety Home medications include Wellbutrin and Ativan Continue home medications 4. Hypertension added Amlodipine low dose. Anticoagulation with Lovenox discussed in the room with nurse Miss Bejarano with Patient and her Son in law and daughter. Discharge Planning Home with Hospice. Pt Condition on Discharge: Stable Discharge Disposition: Hospice/ Home Discharge Time: <= 30 minutes Discharge Instructions DIET: Follow Instructions for: Heart Healthy Diet Activities you can perform: Regular-No Restrictions Lai Oropeza MD May 03, 2017 12:29
[2017-05-03 13:05] VITALS: BP 162/87; PULSE 106; RESP 18; TEMP 97.9; O2SAT 96
[2017-05-03 13:06] VITALS: PULSE 106
[2017-05-03] MEDS ORDERED: SODIUM CHLORIDE 0.9% FLUSH 10 ML FLUSH IV FLUSH PRN (16:45)
== END 2017-05-03 16:46 | disposition hospice, home (50) | DRG 948 ==
LOC: NEPC 16:32 → NEDA 20:20 → NEPGCP 21:13 → HCIN 22:19 → OBSVTOIN 05-03 09:21 → HCIS 05-03 12:30
PROVIDERS: ADMIT Internal Medicine; ATTEND Internal Medicine
DX: R60.1 Generalized edema (principal); C16.9 Malignant neoplasm of stomach, unspecified; C78.7 Secondary malignant neoplasm of liver and intrahepatic bile duct; J90 Pleural effusion, not elsewhere classified; Z90.5 Acquired absence of kidney; F32.9 Major depressive disorder, single episode, unspecified; F41.9 Anxiety disorder, unspecified; I10 Essential (primary) hypertension
CPT/HCPCS: 71010; 74176; 80048; 80053; 81001; 82948; 85025; J1650; J1940